=== PATIENT | male | born 1990 ===

== ENCOUNTER 2023-09-11 22:27 | Emergency (ER) | payer OTHER ==
[~2023-09-11] VITALS: Ht 170.2 cm; Wt 61.4 kg
[2023-09-11 23:17] VITALS: BP 192/114; PULSE 110; RESP 18; TEMP 99.1
[2023-09-11 23:39] LABS: CALCIUM, TOTAL 8.5 mg/dL (8.8-10.5); CREATININE 13.63 mg/dL (0.60-1.30); POTASSIUM 5.1 mmol/L (3.5-5.1)
[2023-09-11] MEDS ORDERED: ONDANSETRON HCL 4 MG/2 ML VIAL IVP PRN (23:45)
[2023-09-11] MEDS ORDERED: ACETAMINOPHEN 325 MG TABLET PO PRN (23:45)
[2023-09-12] MEDS ORDERED: HEPARIN SODIUM,PORCINE 5,000 UNITS/ML VIAL SQ SCH
[2023-09-12 00:05] LABS: TROPONIN I-HIGH SENSITIVITY 35 ng/L (<76)
[2023-09-12 00:15] LABS: BASOPHILS % (AUTO) 0.6 % (0.0-2.0); EOSINOPHILS % (AUTO) 1.3 % (1.0-6.0); HEMATOCRIT 25.4 % (41-53); HEMOGLOBIN 8.2 g/dL (13.5-17.5); LYMPHOCYTES # (AUTO) 1.3 K/uL (1.0-4.8); LYMPHOCYTES % (AUTO) 15.6 % (22.0-44.0); MEAN CORPUSCULAR HEMOGLOBIN 29.8 pg (26.0-34.0); MEAN CORPUSCULAR HGB CONC 32.1 G/dL (31.0-37.0); MEAN CORPUSCULAR VOLUME 93 fL (80-100); MONOCYTES % (AUTO) 11.4 % (2.0-9.0); NEUTROPHILS % (AUTO) 71.1 % (40.0-70.0); PLATELET COUNT (AUTO) 124 K/uL (150-450); RED BLOOD CELL COUNT(AUTO) 2.74 MIL/uL (4.50-5.90); RED CELL DISTRIBUTION WIDTH 15.6 % (11.5-14.5); WHITE BLOOD COUNT (AUTO) 8.4 K/uL (4.5-11.0)
[2023-09-12] MEDS ORDERED: FAMOTIDINE 20 MG TABLET PO SCH (09:00)
[2023-09-12] MEDS ORDERED: DOCUSATE SODIUM 100 MG CAPSULE PO SCH (09:00)
[2023-09-14] MEDS ORDERED: AMLO-258 PO (12:26)
[2023-09-14] MEDS ORDERED: ACET-2123 PO (12:26)
[2023-09-14] MEDS ORDERED: ALBU18HF12 IH (12:26)
[2023-09-14] MEDS ORDERED: CLON0.1T2 PO (12:26)
[2023-09-14] MEDS ORDERED: HYDR50TA36 PO (12:26)
[2023-09-14] MEDS ORDERED: LABE100T51 PO (12:26)
[2023-09-14] MEDS ORDERED: BICT1TAB PO (12:26)
[2023-09-14] MEDS ORDERED: GABA-1216 PO (12:26)
[2023-09-14] MEDS ORDERED: CARV12 PO (12:26)
[2023-09-14] MEDS ORDERED: LOSA-382 PO (12:26)
== END 2023-09-12 02:00 | disposition left against medical advice (07) ==
LOC: EMS 22:27 → EDH 09-12 01:16 → UNDOADMIN 09-12 01:16 → UNDODISIN 09-12 02:00 → EDH 09-12 02:00
DX: I12.0 Hypertensive chronic kidney disease with stage 5 chronic kidney disease or end stage renal disease (principal); N18.6 End stage renal disease; F17.210 Nicotine dependence, cigarettes, uncomplicated
CPT/HCPCS: 80048; 83880; 84484; 85025; 93005; 99284; 99285; G0378